=== PATIENT | female | born 1980 | race Caucasian/White ===

== ENCOUNTER 2016-04-21 06:43 | Day surgery (SDC) | payer OTHER ==
[~2016-04-21 06:43] MED LIST: SILVER NITRATE APPLICATOR 1 APPL TP ONE
[2016-04-21] MEDS ORDERED: LIDOCAINE 1% 5 ML SDV ID PRN (07:58)
[2016-04-21] MEDS ORDERED: NS 1,000 ML IV ONE (07:58)
[2016-04-21] MEDS ORDERED: MIDAZOLAM 2 MG/2 ML VIAL ONE (08:16)
[2016-04-21] MEDS ORDERED: PROPOFOL/EMULSION 500 MG/50 ML BOTTLE IV ONE (08:28)
[2016-04-21] MEDS ORDERED: DEXAMETHASONE 4 MG/ML VIAL ONE (08:45)
[2016-04-21] MEDS ORDERED: PHENYLEPHRINE HCL 100 MCG/ML SYR ONE (08:53)
[2016-04-21] MEDS ORDERED: KETOROLAC 30 MG/1 ML SDV ONE (09:00)
[2016-04-21] MEDS ORDERED: ONDANSETRON 4 MG/2 ML VIAL ONE (09:00)
--- NOTE | 2016-04-21 11:08 | GOP ---
[f rep st] OPERATIVE REPORT DATE OF OPERATION: 04/21/2016 SURGEON: Margaret Quesada MD ANESTHESIA: Litzy Monique M.D.; general with LMA. PREOPERATIVE DIAGNOSIS: 1. Dysfunctional uterine bleeding. 2. Thickened endometrial stripe. POSTOPERATIVE DIAGNOSIS: 1. Dysfunctional uterine bleeding. 2. Thickened endometrial stripe. 3. Endometrial polyp and fibroids. PROCEDURE PERFORMED: Hysteroscopic morcellation of endometrial polyps and fibroids, D and C. FINDINGS: There was about 10 endometrial polyps throughout the endometrium on the anterior-posterior and sidewalls near the tubal ostia. There was 1 submucosal fibroid on the right sidewall and otherw ise normal cervix and tubal ostia. ESTIMATED BLOOD LOSS: Minimal. INDICATIONS: Patient is a 36-year-old, G2, P2, who has had problematic bleeding for the past couple of years. Ultrasound showed a very thickened endometrium with some irregularity indicating likely en dometrial growth of polyps or fibroids. The patient needs a hysteroscopic evaluation with resection of tissue for pathology purposes and also to help with her bleeding, and then she plans an IUD at pos top for control. DESCRIPTION OF PROCEDURE: With informed consent signed, patient was taken to the operating room, [facility] under general anesthesia, placed in the low dorsal lithotomy position. Bladder previously emptie d. Prepped and draped in the usual sterile fashion. Speculum placed. Tenaculum placed on the anter ior lip of the cervix. Cervix dilated to 9.5 mm. Hysteroscope placed using normal saline as a filli ng medium, and findings as noted above. The [employer] morcellator placed using the rotary maxx de into the uterine cavity, and resection of all the tissue done. Once it was felt that all the tiss ue was removed, the rotary blade was used to remove any excess endometrium in a D and C like fashion, and then hemostasis was noted. The hysteroscope removed. Net fluid deficit was 300 cc. The patien t was awakened in the operating room, taken to the recovery room in stable condition. Tolerated the procedure well. COMPLICATIONS: None. Copy requested to: Luigi Greco [employer] /[id number]/[id number]
== END 2016-04-21 11:05 | disposition home or self-care (01) ==
LOC: FSGY 06:43
PROVIDERS: ATTEND Obstetrics & Gynecology Gynecology
PROC: 0UDB8ZX Extraction of Endometrium, Via Natural or Artificial Opening Endoscopic, Diagnostic (ICD-10-PCS; principal; 2016-04-21 08:00)
DX: N92.0 Excessive and frequent menstruation with regular cycle (principal); N84.0 Polyp of corpus uteri; D25.9 Leiomyoma of uterus, unspecified
CPT/HCPCS: 58558; C1782; J1100; J1885; J2250; J2370; J2405; J2704